=== PATIENT | female | born 1960 | race American Indian/Alaskan Native ===

== ENCOUNTER 2018-01-19 12:04 | Emergency (ER) | payer MEDICAID, MEDICARE ==
[2018-01-19] MEDS ORDERED: ZOFRAN IV ONE (13:27)
[2018-01-19] MEDS ORDERED: CATAPRES PO ONE (13:27)
[2018-01-19 14:07] LABS: Bilirubin,Urine NEG (Negative); Blood,Urine SM (Negative); Color,Urine Yellow (Yellow); Mucus,Urine FEW /HPF; Urobilinogen,Urine < 2.0 mg/dL (<2.0)
[2018-01-19 14:16] LABS: Basophils # (Auto) 0.1 K/mm3 (0.0-0.1); Basophils % (Auto) 1.3 % (0.0-1.8); Eosinophils % (Auto) 0.6 % (0.0-4.3); Hematocrit 48.2 % (30.3-42.9); Hemoglobin 15.7 gm/dl (10.1-14.3); Lymphocytes # (Auto) 3.2 K/mm3 (1.2-5.4); Lymphocytes % (Auto) 52.8 % (13.4-35.0); Mean Corpuscular HGB Conc 33 % (30-34); Mean Corpuscular Hemoglobin 26 pg (28-32); Mean Corpuscular Volume 81 fl (79-97); Monocytes # (Auto) 0.4 K/mm3 (0.0-0.8); Monocytes % (Auto) 5.8 % (0.0-7.3); Platelet Count 342 K/mm3 (140-440); Red Blood Count 5.97 M/mm3 (3.65-5.03); Red Cell Distribution Width 14.7 % (13.2-15.2)
[2018-01-19 14:21] LABS: BUN/Creatinine Ratio 16; Blood Urea Nitrogen 14 mg/dL (7-17); Calcium 9.1 mg/dL (8.4-10.2); Hemolysis Index 38
--- NOTE | 2018-01-19 14:36 | Emergency Department Report ---
ED General Adult HPI - General Chief complaint: High BP Stated complaint: HTN Time Seen by Provider: 01/19/18 13:05 Source: patient, EMS Mode of arrival: Stretcher Limitations: No Limitations - History of Present Illness Initial comments: Pt is a 57 yo female who presents for eval for hypertension as she was undergoing a routine evaluation at a rehab program [facility] crack. Pt states she is on blood pressure meds but ran out .Pt denied any current complaints. Pt states she is not sob and has no chest pain. pt states she had a headache earlier but it has resolved now. -: This morning - Related Data Previous Rx's Medication Instructions Recorded Last Taken Type Furosemide [Lasix TAB] 40 mg PO QDAY #30 tablet 01/19/18 Unknown Rx Lisinopril 20 mg PO DAILY #30 tablet 01/19/18 Unknown Rx Potassium Chloride [K-Dur] 10 meq PO QDAY #30 tablet 01/19/18 Unknown Rx amLODIPine [Norvasc] 10 mg PO DAILY #30 tab 01/19/18 Unknown Rx Allergies Allergy/AdvReac Type Severity Reaction Status Date / Time Sulfa (Sulfonamide Allergy Hives Verified 01/19/18 12:24 Antibiotics) ED Review of Systems ROS: Stated complaint: HTN Other details as noted in HPI Constitutional: no symptoms reported Eyes: as per HPI ENT: denies: throat pain Respiratory: no symptoms reported. denies: cough, shortness of breath Cardiovascular: denies: chest pain, edema Musculoskeletal: denies: joint swelling Skin: denies: rash Neurological: headache (not currently) Psychiatric: denies: auditory hallucinations, homicidal thoughts, suicidal thoughts ED Past Medical Hx - Past Medical History Previous Medical History?: Yes Hx Hypertension: Yes Hx Congestive Heart Failure: Yes Hx Psychiatric Treatment: Yes (AXIETY, DEPRESSION) Additional medical history: EMPHYSEMA - Surgical History Hx Cholecystectomy: Yes Additional Surgical History: HYSTERECTOMY - Social History Smoking Status: Never Smoker Substance Use Type: None - Medications Home Medications: Home Medications Medication Instructions Recorded Confirmed Last Taken Type Furosemide [Lasix TAB] 40 mg PO QDAY #30 tablet 01/19/18 Unknown Rx Lisinopril 20 mg PO DAILY #30 tablet 01/19/18 Unknown Rx Potassium Chloride [K-Dur] 10 meq PO QDAY #30 tablet 01/19/18 Unknown Rx amLODIPine [Norvasc] 10 mg PO DAILY #30 tab 01/19/18 Unknown Rx ED Physical Exam - General Limitations: No Limitations - Head Head exam: Present: atraumatic, normocephalic - Eye Eye exam: Present: normal appearance, PERRL, EOMI - ENT ENT exam: Present: normal exam, normal orophraynx - Neck Neck exam: Present: normal inspection - Respiratory Respiratory exam: Present: normal lung sounds bilaterally. Absent: respiratory distress, wheezes, rales, rhonchi, stridor - Cardiovascular Cardiovascular Exam: Present: regular rate, normal rhythm, normal heart sounds - GI/Abdominal GI/Abdominal exam: Present: soft, normal bowel sounds. Absent: distended, tenderness, guarding, rebound - Extremities Exam Extremities exam: Present: normal inspection. Absent: pedal edema - Neurological Exam Neurological exam: Present: alert, oriented X3, CN II-XII intact, normal gait - Skin Skin exam: Present: warm, dry, intact ED Course Vital Signs 01/19/18 01/19/18 01/19/18 12:24 13:46 14:29 Temperature 98.6 F Pulse Rate 69 59 L Respiratory 17 18 Rate Blood Pressure 168/119 Blood Pressure 173/127 158/98 [Left] O2 Sat by Pulse 94 98 Oximetry 01/19/18 14:54 Temperature Pulse Rate 82 Respiratory 15 Rate Blood Pressure Blood Pressure 144/98 [Left] O2 Sat by Pulse 64 L Oximetry - Reevaluation(s) Reevaluation #1: 01/19/18 15:23 Pt has had a stable ed course. BP improved. Pt will be dc'd with refill of her medications ED Medical Decision Making - Lab Data Result diagrams: 01/19/18 13:30 01/19/18 13:30 Critical care attestation.: If time is entered above; I have spent that time in minutes in the direct care of this critically ill patient, excluding procedure time. ED Disposition Clinical Impression: Hypertension, Medication refill Disposition: [id number] TO HOME OR SELFCARE Is pt being admited?: No Does the pt Need Aspirin: No Condition: Stable Instructions: Hypertension (ED) Additional Instructions: return sooner if worse or if further concerns be sure to fill your medication prescriptions Prescriptions: amLODIPine [Norvasc] 10 mg PO DAILY #30 tab Furosemide [Lasix TAB] 40 mg PO QDAY #30 tablet Lisinopril 20 mg PO DAILY #30 tablet Potassium Chloride [K-Dur] 10 meq PO QDAY #30 tablet Referrals: [facility] [Outside] - 3-5 Days
[2018-01-19 14:55] VITALS: BP 144/98
== END 2018-01-19 15:47 | disposition home or self-care (01) ==
LOC: ED 12:04
DX: I11.0 Hypertensive heart disease with heart failure (principal); I50.9 Heart failure, unspecified; F41.9 Anxiety disorder, unspecified; F32.9 Major depressive disorder, single episode, unspecified; Z90.710 Acquired absence of both cervix and uterus; Z90.49 Acquired absence of other specified parts of digestive tract; Z88.2 Allergy status to sulfonamides; Z76.0 Encounter for issue of repeat prescription
CPT/HCPCS: 36415; 80048; 81001; 85025; 99284; J2405